=== PATIENT | female | born 1995 | race Caucasian/White ===

== ENCOUNTER → 2017-10-05 16:00 | Outpatient (CLI) | payer OTHER, SELFPAY ==
[2017-10-05 18:03] LABS: hCG Titer Quant., Serum 175 mIU/mL (<9 non-preg)
== END ==
PROVIDERS: Visit Provider Obstetrics & Gynecology
DX: Z32.01 Encounter for pregnancy test, result positive (principal)
CPT/HCPCS: 36415; 84702

== ENCOUNTER → 2017-10-07 16:26 | Outpatient (CLI) | payer OTHER, SELFPAY ==
[2017-10-07 17:56] LABS: hCG Titer Quant., Serum 412 mIU/mL (<9 non-preg)
== END ==
PROVIDERS: Visit Provider Obstetrics & Gynecology
DX: Z32.01 Encounter for pregnancy test, result positive (principal)
CPT/HCPCS: 36415; 84702

== ENCOUNTER → 2017-11-17 09:53 | Outpatient (CLI) | payer OTHER, SELFPAY ==
[2017-11-17 11:21] LABS: Color, Urine Yellow (Yellow); Glucose, Dipstick Normal (Normal); Ketone-Dipstick Negative (Negative); Leukocyte Esterase-Dipstick 500 /ul (Negative); Nitrite-Dipstick Negative (Negative); Occult Blood-Urine 10 /ul (Negative); Protein-Dipstick Negative (Negative); Specific Gravity, Urine 1.015 (1.002-1.030); Urine Bilirubin Dipstick Negative (Negative); Urine Clarity Clear (Clear); Urine Urobilinogen Normal (Normal)
[2017-11-17 12:45] LABS: Absolute Lymphocyte Count 1.46 X10^3/ul (0.83-4.51); Absolute Neutrophil Count 7.3 X10^3/uL (2.0-7.7); Basophil# 0.01 X10^3/uL; Basophil% 0.1 % (0-1); Eosinophil# 0.04 X10^3/uL; Eosinophils% 0.4 % (0-5); Hematocrit 38.7 % (37-47); Hemoglobin 12.9 g/dl (12.0-15.0); Lymphocyte # 1.46 X10^3/ul (4.0); Lymphocyte % 15.7 % (19-41); Mean Corp Hgb Conc 33.3 g/gl (32-36); Mean Corpuscular Hgb 29.8 pg (27.0-32.0); Mean Corpuscular Volume 89.4 fL (81-99); Mean Platelet Vol. 10.2 fl (6.2-12.0); Monocyte# 0.45 X10^3/uL; Monocyte% 4.8 % (0-10); Neutrophil # 7.31 X10^3/uL (2.7-7.7); Neutrophil % 78.6 % (47-70); Platelet Count 234 K/mm3 (150-450); RBC Distribution Width CV 13.8 % (11.6-14.6); RBC Distribution Width SD 44.7 fl (35.1-43.9); Red Blood Count 4.33 M/mm3 (4.2-5.4); White Blood Count 9.3 K/mm3 (4.4-11.0)
[2017-11-17 12:52] LABS: Thyroid Stim Hormone (TSH) 0.66 uIU/mL (0.358-3.74)
[2017-11-17 12:56] LABS: POSITIVE COUNT NO; POSITIVE DIFFERENTIAL NO; POSITIVE MORPHOLOGY NO
[2017-11-17 12:57] LABS: Chlamydia Trachomatis by PCR Negative (Negative); Neisserai gonorrhoeae by PCR Negative (Negative); Probe Check PASS; Specimen Processing Control PASS
[2017-11-17 12:58] LABS: Sample Adequacy Control PASS
[2017-11-17 13:37] LABS: HIV - WCH Non-Reactive (Nonreactive); Rubella IgG 118.4 IU/mL
[2017-11-18 13:55] LABS: HEPATITIS B SURFACE AG Negative (Negative); Hep C Antibodies <0.1 s/co ratio (0.0-0.9)
[2017-11-19 03:15] LABS: Prenatal RPR NONREACTIVE (NONREACTIVE)
== END ==
PROVIDERS: Visit Provider Obstetrics & Gynecology
DX: Z34.81 Encounter for supervision of other normal pregnancy, first trimester (principal)
CPT/HCPCS: 36415; 81002; 84443; 85025; 86703; 86762; 86803; 87340; 87491; 87591

== ENCOUNTER → 2018-03-28 09:10 | Outpatient (CLI) | payer OTHER, SELFPAY ==
[2018-03-28 10:42] LABS: Hematocrit 37.6 % (37-47); Mean Corp Hgb Conc 31.9 g/gl (32-36); Mean Corpuscular Hgb 30.5 pg (27.0-32.0); Mean Corpuscular Volume 95.4 fL (81-99); Mean Platelet Vol. 9.7 fl (6.2-12.0); Platelet Count 173 K/mm3 (150-450); RBC Distribution Width CV 12.8 % (11.6-14.6); RBC Distribution Width SD 44.3 fl (35.1-43.9); Red Blood Count 3.94 M/mm3 (4.2-5.4); White Blood Count 11.1 K/mm3 (4.4-11.0)
[2018-03-28 10:43] LABS: Scan Indicated on CBC? Y/N NO
[2018-03-28 10:44] LABS: Glucose Challenge Gest 1H 50g 91 mg/dL (70-140)
== END ==
PROVIDERS: Visit Provider Obstetrics & Gynecology
DX: Z34.83 Encounter for supervision of other normal pregnancy, third trimester (principal)
CPT/HCPCS: 36415; 82950; 85027

== ENCOUNTER → 2018-05-24 17:43 | Outpatient (CLI) | payer OTHER, SELFPAY ==
[2018-05-24 20:57] LABS: Group B Strep DNA By PCR POSITIVE (Negative); Probe Check PASS
== END ==
PROVIDERS: Referring Provider Obstetrics & Gynecology; Visit Provider Obstetrics & Gynecology
DX: Z36.85 Encounter for antenatal screening for Streptococcus B (principal)
CPT/HCPCS: 87653

== ENCOUNTER 2018-06-05 20:10 | Inpatient (IN) | payer OTHER, SELFPAY ==
[2018-06-05 17:58] VITALS: BMI 29.4
[2018-06-05] MEDS: Lactated Ringers 1,000 ML 50 ML IV ×2 (20:33→23:40)
[2018-06-05 20:56] LABS: Hematocrit 42.8 % (37-47); Hemoglobin 14.1 g/dl (12.0-15.0); Mean Corp Hgb Conc 32.9 g/gl (32-36); Mean Corpuscular Hgb 30.6 pg (27.0-32.0); Mean Corpuscular Volume 92.8 fL (81-99); Platelet Count 199 K/mm3 (150-450); RBC Distribution Width CV 13.8 % (11.6-14.6); RBC Distribution Width SD 46.2 fl (35.1-43.9); Red Blood Count 4.61 M/mm3 (4.2-5.4)
[2018-06-05 20:57] LABS: Scan Indicated on CBC? Y/N NO
[2018-06-06] MEDS: fentaNYL-bupivacaine (epidural) 100 ML BAG EPIDURAL ×4 (00:50→17:53)
[2018-06-06] MEDS: Lactated Ringers 1,000 ML 50 ML IV ×3 (02:50→14:04)
--- NOTE | 2018-06-06 06:25 | PCM.PN.BLA ---
Progress Note LABOR PROGRESS NOTE 38 5/7 wk spon labor. Epidural in place. ? SROM CX /-1 per last RN check approx 3:30 am AVSS EFM 130-150s baseline throughout the night. Accels to 180+ with occasional variable. UCs now q 3-4 min A/P: term IUP spont labor 38 5/7 wks. Epidural placed, and SROM . Continue labor. Anticipate
--- NOTE | 2018-06-06 07:55 | PCM.PN.BLA ---
Progress Note LABOR PROGRESS NOTE 38 5/7 wk spont labor Comfortable w/ epidural. Able to rest a little AVSS EFM 140-150s with accels. Category I tracing. UCs q 3-4 mins CX: 5-6/90/-2 BBOW with UC Borderline pelvis with narrow arch. AROM bloody show. IUPC placed to monitor UCs A/P: 38 5/7 wk Spont labor. IUPC placed. Pitocin per protol prn
[2018-06-06] MEDS: Oxytocin 30 units/NS 500 ml 30 UNITS/500 ML IV.SOLN IV (08:22)
--- NOTE | 2018-06-06 17:14 | PCM.PN.BLA ---
Progress Note 38 5/7 wk spont labor Pitocin augmented. Epidural in place AVSS Complete since approx 1500. -1 station. Likely OP. Borderline pelvis with narrow arch. EFM: 140-150 avg variability. Accels Scalp stim noted. Variables noted Category I tracing. UCs q 2-3 mins A/P: 38 5/7 wk complete and pushing. Continue position changes, pushing Watch for further progress, descent.
[2018-06-06] MEDS: Oxytocin 30 units/NS 500 ml 30 UNITS/500 ML IV.SOLN 334 UNITS IV (20:33)
--- NOTE | 2018-06-06 20:46 | OP.PCM_ITS ---
Vaginal Delivery Maternal Presentation: Active Labor, Spontaneous Rupture of Membranes Amniotic Membrane Rupture Type: Spontaneous Amniotic Fluid Description: Clear Final KARRI: 06/15/18 Final KARRI Source: US <20 weeks Gestational age: 38 Weeks and 5 Days [place] doctor who attended delivery (if requested by OB): Ana Barrera - tachycardia Date of Procedure: 06/06/18 Pre-Operative Diagnosis: IUP Post-Operative Diagnosis: IUP Surgery/ Procedure Performed: Vacuum Assisted Vaginal Delivery Type of Anesthesia: Epidural, Local with 1% lidocaine Description of Procedure: Spontaneous vaginal delivery of a viable female with Apgars of 8/9 from an occiput anterior presentation with clear amniotic fluid and normal three- vessel placenta. First-degree midline episiotomy extended to a third degree midline laceration repaired in layers with 3-0 Vicryl suture under epidural and local anesthesia. From low outlet, kiwi vacuum used x6 gentle pulls with a single pop off due to increasing maternal fatigue after approximately 3.5 hours of pushing and increasing tachycardia. Sponge counts okay. Delivery physician: Thor Goins MD. Presentation: Vertex Placental Delivery Description: Spontaneous Placenta Disposition: [facility] Cord Vessel Description: 3 Vessels Cord Gases drawn per routine: ABG, VBG Cord Entanglement: None Estimated Blood Loss: 250 cc Infant A gender: Female (1 minute): 8 (5 minute): 9 Episiotomy Description: Midline, 1st degree Laceration: Midline, Perineal Extension/lac, 3rd degree Medications given after delivery: IV Pitocin Complications: None
--- NOTE | 2018-06-06 20:52 | PCM.DCVAG ---
Discharge Diet: No Restrictions Discharge Activity: May Shower, May Take a Tub Bath May resume sexual activity in: 4-6 weeks Additional Activity Instructions:: Nothing in the vagina for 4-6 weeks. You may return to work/school in 6 weeks. Call your doctor if you observe: Fever of 101 or Higher, Inability to urinate, Inability to have a bowel movement, Using more than one pad per hour Additional Instructions: If you experience any of the following, contact your healthcare provider. Bleeding that soaks a pad every hour for 2 hours Unrelieved incision or abdominal pain Swelling, redness, discharge or bleeding from your incision or episiotomy site Your incision begins to separate Problems urinating (including inability to urinate or burning while urinating). Visual changes Severe headache Flu-like symptoms Pain or redness in one of both of your breasts Pain, warmth, tenderness or swelling in your legs, especially the calf area Frequent nausea and vomiting Symptoms of depression or anxiety If you experience any of the following, call 911 or go to the nearest Emergency Room. Chest pain Problems breathing Seizure activity Partial or complete paralysis of a body part, slurred speech, weakness or drooping of the face, or a sudden inability to walk or hold your balance Allergies/Adverse Reactions: Allergies No Known Allergies Allergy (Verified 06/05/18 18:01) Medications to take at Discharge Vits [Prenatabs FA] 1 tablet PO DAILY 05/03/17 Please Follow Up With: Micki Alvarado MD - [phone] When: Call to make an appointment with your doctor in 6 weeks. Primary Care Physician: Care Physician,No Primary [Primary Care Provider] - Test Results: Test results from this visit will be discussed in further detail at your follow-up appointment, if applicable.
--- NOTE | 2018-06-06 20:53 | DCINST_ITS ---
Discharge Diet: No Restrictions Discharge Activity: May Shower, May Take a Tub Bath May resume sexual activity in: 4-6 weeks Additional Activity Instructions:: Nothing in the vagina for 4-6 weeks. You may return to work/school in 6 weeks. Call your doctor if you observe: Fever of 101 or Higher, Inability to urinate, Inability to have a bowel movement, Using more than one pad per hour Additional Instructions: If you experience any of the following, contact your healthcare provider. * Bleeding that soaks a pad every hour for 2 hours * Unrelieved incision or abdominal pain * Swelling, redness, discharge or bleeding from your incision or episiotomy site * Your incision begins to separate * Problems urinating (including inability to urinate or burning while urinating). * Visual changes * Severe headache * Flu-like symptoms * Pain or redness in one of both of your breasts * Pain, warmth, tenderness or swelling in your legs, especially the calf area * Frequent nausea and vomiting * Symptoms of depression or anxiety If you experience any of the following, call 911 or go to the nearest Emergency Room. * Chest pain * Problems breathing * Seizure activity * Partial or complete paralysis of a body part, slurred speech, weakness or drooping of the face, or a sudden inability to walk or hold your balance Allergies/Adverse Reactions: Allergies No Known Allergies Allergy (Verified 06/05/18 18:01) Medications to take at Discharge Vits [Prenatabs FA] 1 tablet PO DAILY 05/03/17 Please Follow Up With: Micki Alvarado MD - [phone] When: Call to make an appointment with your doctor in 6 weeks. Primary Care Physician: Care Physician,No Primary [Primary Care Provider] - Test Results: Test results from this visit will be discussed in further detail at your follow- up appointment, if applicable.
[2018-06-06] MEDS: Oxytocin 30 units/NS 500 ml 30 UNITS/500 ML IV.SOLN 167 UNITS IV (21:03)
[2018-06-06] MEDS: 0.9% Saline Lock 10 ML Syringe IV (22:03)
[2018-06-06] MEDS: Ibuprofen 600 MG Tablet PO (22:31)
[2018-06-06 23:45] VITALS: BP 95/55; PULSE 114; RESP 16; TEMP 36.2; O2SAT 98
[2018-06-07 01:22] VITALS: PULSE 95; RESP 16
--- NOTE | 2018-06-07 01:27 | NURSING ---
0115 epidural cath d/c'd with blue tip intact. pt tolerated well
[2018-06-07 04:16] VITALS: BP 92/52; PULSE 79; RESP 16; TEMP 36.5; O2SAT 98
[2018-06-07] MEDS: Ibuprofen 600 MG Tablet PO ×2 (06:51→18:03)
[2018-06-07 08:00] VITALS: BP 102/57; PULSE 89; RESP 16; TEMP 37.2; O2SAT 96
--- NOTE | 2018-06-07 08:21 | PCM.PN.OB ---
Subjective: PPD#1 Vacuum assisted vaginal delivery Doing well. Nursing. Minimal pain. No concerns voiced. - Physical Exam General: Alert, Oriented x3, Cooperative, No apparent distress HEENT: Atraumatic Neck: Supple Abdomen: Soft - Fundus firm NT at 2-3 cm inferior to umbilicus Neurological: Cranial nerves II-XII grossly intact Psych/Mental Status: Normal Affect Vital Signs Temp Pulse Resp BP Pulse Ox 99 F 89 16 102/57 L 96 06/07/18 08:00 06/07/18 08:00 06/07/18 08:00 06/07/18 08:00 06/07/18 08:00 Oxygen Delivery Method Room Air Weight: 73.028 kg Body Mass Index (BMI) 29.4 Intake and Output for Last 24 Hours 06/05/18 06/06/18 06/07/18 23:59 23:59 23:59 Intake Total 5746 / 5746 Output Total 2049 1350 / 1350 Balance 3696 / 3696 -1350 / -1350 Medical Necessity - Tobacco Use Smoking Status: Never smoker Assessment/Plan PPD#1 Vacuum assisted vaginal delivery Stable pp. Continue care
[2018-06-07 13:42] VITALS: BP 118/78; PULSE 102; RESP 16; TEMP 36.3; O2SAT 98
[2018-06-07] MEDS: Senna/Docusate Sodium 1 Tablet PO (13:49)
[2018-06-07] MEDS: Acetaminophen 500 MG Tablet 1000 MG PO (13:50)
[2018-06-07 18:00] VITALS: BP 100/66; PULSE 90; RESP 16; TEMP 37.1; O2SAT 100
[2018-06-07 19:50] VITALS: BP 107/65; PULSE 85; RESP 16; TEMP 36.7; O2SAT 97
[2018-06-08 02:00] VITALS: BP 95/56; PULSE 78; RESP 18; TEMP 36.6
--- NOTE | 2018-06-08 07:58 | PCM.PN.OB ---
Subjective: PPD#2 Doing well. Minimal pain. Breast feeding. - Physical Exam General: Alert, Oriented x3, Cooperative, No apparent distress HEENT: Atraumatic Neck: Supple Abdomen: Soft - Fundus firm NT at umbilicus Neurological: Cranial nerves II-XII grossly intact Psych/Mental Status: Normal Affect Vital Signs Temp Pulse Resp BP Pulse Ox 97.8 F 78 18 95/56 L 97 06/08/18 02:00 06/08/18 02:00 06/08/18 02:00 06/08/18 02:00 06/07/18 19:50 Oxygen Delivery Method Room Air Weight: 73.028 kg Body Mass Index (BMI) 29.4 Intake and Output for Last 24 Hours 06/06/18 06/07/18 06/08/18 23:59 23:59 23:59 Intake Total 5746 / 5746 Output Total 2049 / 2049 1350 / 1350 Balance 3696 / 3696 -1350 / -1350 Medical Necessity - Tobacco Use Smoking Status: Never smoker Assessment/Plan PPD#2 Vacuum assisted vaginal delivery Stable pp. Dischg home. RTO in 6 wk for PP check.
[2018-06-08] MEDS: Senna/Docusate Sodium 1 Tablet PO (09:31)
[2018-06-08 10:00] VITALS: BP 123/77; PULSE 103; RESP 18; TEMP 36.6; O2SAT 100
== END 2018-06-08 11:40 | disposition home or self-care (01) | DRG 768 ==
LOC: WPOUT 20:13
PROVIDERS: Obstetrics & Gynecology; Admitting Provider Obstetrics & Gynecology; Visit Provider Obstetrics & Gynecology
DX: O98.82 Other maternal infectious and parasitic diseases complicating childbirth (principal); Z37.0 Single live birth; O70.20 Third degree perineal laceration during delivery, unspecified; B95.1 Streptococcus, group B, as the cause of diseases classified elsewhere; Z3A.38 38 weeks gestation of pregnancy
CPT/HCPCS: 59025; 59050; 85027; 86850; 86900; 99218; J7120; A4216; G0378; J3490

== ENCOUNTER 2018-06-09 13:38 | Outpatient (CLI) | payer OTHER, SELFPAY | END 2018-06-09 14:40 | disposition home or self-care (01) | LOC: WPOUT 13:40 → WP 13:40 | PROVIDERS: Referring Provider Obstetrics & Gynecology; Visit Provider Obstetrics & Gynecology | DX: O92.79 Other disorders of lactation (principal) | CPT/HCPCS: 96152 ==

== ENCOUNTER 2018-06-13 10:10 | Outpatient (CLI) | payer OTHER, SELFPAY | END 2018-06-13 10:50 | disposition home or self-care (01) | LOC: WPOUT 10:17 → WP 10:17 | PROVIDERS: Referring Provider Obstetrics & Gynecology; Visit Provider Obstetrics & Gynecology | DX: Z39.1 Encounter for care and examination of lactating mother (principal) | CPT/HCPCS: 96152 ==

== ENCOUNTER → 2018-07-13 12:33 | Outpatient (CLI) | payer OTHER, SELFPAY ==
[2018-07-18 15:59] LABS: HPV Reflexed? NOT INDICATED
== END ==
PROVIDERS: Referring Provider Obstetrics & Gynecology; Visit Provider Obstetrics & Gynecology
DX: Z12.4 Encounter for screening for malignant neoplasm of cervix (principal)
CPT/HCPCS: 88175; G0145

== ENCOUNTER → 2019-07-28 16:22 | Outpatient (CLI) | payer OTHER, SELFPAY ==
[2019-07-28 19:36] LABS: Chlamydia Trachomatis by PCR Negative (Negative); Neisserai gonorrhoeae by PCR Negative (Negative); Probe Check PASS; Sample Adequacy Control PASS; Specimen Processing Control PASS
== END ==
PROVIDERS: Visit Provider Obstetrics & Gynecology
DX: Z11.3 Encounter for screening for infections with a predominantly sexual mode of transmission (principal)
CPT/HCPCS: 87491; 87591

== ENCOUNTER → 2019-08-14 09:34 | Outpatient (CLI) | payer OTHER, SELFPAY ==
[2019-08-14 10:58] LABS: Absolute Lymphocyte Count 1.39 X10^3/uL (0.83-4.51); Basophil# 0.02 X10^3/uL; Basophil% 0.3 % (0-1); Color, Urine Yellow (Yellow); Eosinophil# 0.02 X10^3/uL; Eosinophils% 0.3 % (0-5); Glucose, Dipstick Normal (Normal); Hematocrit 41.3 % (37-47); Hemoglobin 13.9 g/dL (12.0-15.0); Ketone-Dipstick Negative (Negative); Leukocyte Esterase-Dipstick 25 /ul (Negative); Lymphocyte # 1.39 X10^3/ul (4.0); Lymphocyte % 17.8 % (19-41); Mean Corp Hgb Conc 33.7 g/dL (32-36); Mean Corpuscular Hgb 30.6 pg (27.0-32.0); Mean Platelet Vol. 9.9 fl (6.2-12.0); Monocyte% 3.9 % (0-10); NRBC Flagged by Analyzer 0 % (0-5); Neutrophil # 6.02 X10^3/uL (2.7-7.7); Neutrophil % 77.2 % (47-70); Nitrite-Dipstick Negative (Negative); Occult Blood-Urine Negative /ul (Negative); Platelet Count 194 K/mm3 (150-450); Protein-Dipstick Negative (Negative); RBC Distribution Width CV 12.3 % (11.6-14.6); RBC Distribution Width SD 40.2 fl (35.1-43.9); Red Blood Count 4.54 M/mm3 (4.2-5.4); Urine Bilirubin Dipstick Negative (Negative); Urine Clarity Sl. Cloudy (Clear); Urine Urobilinogen Normal (Normal); White Blood Count 7.8 K/mm3 (4.4-11.0)
[2019-08-14 11:09] LABS: Amphetamine Urine VISTA NEGATIVE (<1000 ng/mL); Barbiturate Urine VISTA NEGATIVE (< 200 ng/mL); Benzodiazepine Urine VISTA NEGATIVE (< 200 ng/mL); Cocaine Urine VISTA NEGATIVE (< 300 ng/mL); Ecstacy Urine VISTA NEGATIVE (< 500 ng/mL); Methadone Urine VISTA NEGATIVE (< 300 ng/mL); PCP Urine VISTA NEGATIVE (< 25 ng/mL); THC Urine VISTA NEGATIVE (< 50 ng/mL); Vista UDS pH Range 7
[2019-08-14 11:17] LABS: Thyroid Stim Hormone (TSH) 0.81 uIU/mL (0.358-3.74)
[2019-08-14 11:59] LABS: HIV - WCH Non-Reactive (Nonreactive); Hepatitis B Surface Antigen Non-Reactive (Nonreactive); Hepatitis C Antibody Non-Reactive (Nonreactive); Rubella IgG 141.7 IU/mL
[2019-08-17 00:56] LABS: Prenatal RPR NONREACTIVE (NONREACTIVE)
== END ==
PROVIDERS: Visit Provider Obstetrics & Gynecology
DX: Z34.81 Encounter for supervision of other normal pregnancy, first trimester (principal)
CPT/HCPCS: 36415; 80307; 81002; 84443; 85025; 86703; 86762; 86803; 87340

== ENCOUNTER → 2020-02-08 11:34 | Outpatient (CLI) | payer OTHER, SELFPAY | PROVIDERS: Visit Provider Obstetrics & Gynecology | DX: Z36.85 Encounter for antenatal screening for Streptococcus B (principal) | CPT/HCPCS: 87081; 87086 ==

== ENCOUNTER → 2020-02-12 10:11 | Outpatient (CLI) | payer OTHER, SELFPAY | PROVIDERS: Referring Provider Obstetrics & Gynecology; Visit Provider Obstetrics & Gynecology | DX: Z11.59 Encounter for screening for other viral diseases (principal) | CPT/HCPCS: 87635; G2023; U0003 ==

== ENCOUNTER 2020-02-28 05:06 | Inpatient (IN) | payer OTHER, SELFPAY ==
[2020-02-28] VITALS (34 sets, daily range): BP systolic 96–140; BP diastolic 51–84; PULSE 78–124; RESP 15–18; TEMP 36.1–36.9; O2SAT 83–100; BMI 28.0
[2020-02-28] MEDS: Lactated Ringers 1,000 ML 999 ML IV (05:30)
[2020-02-28 05:56] LABS: Absolute Lymphocyte Count 1.84 X10^3/uL (0.83-4.51); Basophil# 0.05 X10^3/uL; Basophil% 0.3 % (0-1); Eosinophil# 0.05 X10^3/uL; Eosinophils% 0.3 % (0-5); Hematocrit 40.5 % (37-47); Hemoglobin 13.3 g/dL (12.0-15.0); Lymphocyte # 1.84 X10^3/ul (4.0); Lymphocyte % 12.3 % (19-41); Mean Corp Hgb Conc 32.8 g/dL (32-36); Mean Corpuscular Volume 94.4 fL (81-99); Mean Platelet Vol. 10.2 fl (6.2-12.0); Monocyte# 0.77 X10^3/uL; Monocyte% 5.1 % (0-10); NRBC Flagged by Analyzer 0 % (0-5); Neutrophil # 11.96 X10^3/uL (2.7-7.7); Neutrophil % 79.7 % (47-70); Platelet Count 188 K/mm3 (150-450); RBC Distribution Width CV 12.8 % (11.6-14.6); RBC Distribution Width SD 43.4 fl (35.1-43.9); Red Blood Count 4.29 M/mm3 (4.2-5.4)
[2020-02-28] MEDS: Oxytocin 10 UNITS/ML Vial IM (06:39)
--- NOTE | 2020-02-28 06:52 | HP.PCM_ITS ---
History and Physical Date of Admission: 02/28/20 ACOG ANTEPARTUM RECORD - HISTORY AND PHYSICAL (02/28/2020) Name: IZA GOMEZ History of This : This is a 25-year-old G4, P1 AB 2 who presents to labor and delivery in advanced labor. care has been uneventful. OB Physician: GERRY Pendleton's Physician: Dr Cannon ...................................................................... : 1995 Age: 25 Address: [address] [place] [address] Phone: (h) [phone] ([phone] Insurance Carrier: [facility] [id number] Emergency Contact: TONIA MATHIASR [phone] ...................................................................... Final KARRI: 02/20/20 By Ultrasound: 10 weeks 3 days PARITY: (G-Total Pregnancies P-Fullterm,Premature,Induced AB,Spont AB, Ectopics, Multiple,Living) KARRI CONFIRMATION: By LMP: 05/04/19 Initial Exam: 02/08/20 By First Ultrasound Exam: 02/20/20 Final KARRI: 02/20/20 OB PROBLEM LIST: Declines AFP and CF testing. Mild anxiety but only when . ALLERGIES: No Known Allergies MEDICATIONS: + DHA 28 mg iron- 975 mcg-200 mg combo pack daily SOCIAL HISTORY: Smoking - Never Alcohol Use - denies drinking Diet - moderate, balanced diet, caffeine < 2 drinks per day and water intake tries for 1 liter daily Lifestyle - Exercise - minimal and Enc to walk 20 min daily. Employer - [employer] Job Description - adjudication specialist Illicit Drug Use - None Sexual Activity - Residence - lives with Place of - [place], [place] Hours Worked - 50 Spouse-Sig Other Name - Tonia Spouse-Sig Other Occupation - [employer] -Grinding And Polishing Laborer Spouse-Sig Other Phone No - [phone] Children Name(s) - Leora ('18, JW) PRIOR DELIVERY HISTORY DEL DATE GEST LAB WT LB WT OZ TYPE ANES LABOR TX 15 Aug 08 4 0 0 0 Sab None No 15 Jun 09 38 36 7 10 Vag Epidural No 15 Apr 17 7 0 0 0 Sab None No ANTEPARTUM FLOW CHART VISIT GE RTC FU F F UT U U DATE WK MD WKS HT PN HR M SS BP ED WT UT GL D EF ST __ ____ ___ __ __ ___ __ __ __ ___ __ __ __ ___ __ 07 Juventino 41 CH 2 40 V + + 110/82 0 154 tr - 1+ 25 -2 Jan CH 1 38 V + + 122/80 0 148 tr - ft 30 hi Oct 13 CH 2 on + 92/64 0 121 - - Sep 08 SHM 2 17 ? + ? 108/72 0 115 - - Aug 03 ELB 4 - - + O 98/58 0 112 tr - ANTEPARTUM NOTE(S): Feb 27 2020: feeling well. Cervix check. Feb 08 2020: feeling well. GBS and LARC today. declines doing glucola. Oct 10 2019: see note Sep 12 2019: see note Aug 14 2019: COMPREHENSIVE ANTEPARTUM NOTE(S): Feb 27 2020: IOL papers signed today and understands Cytotec IOL. Has pre- registered for the hospital. Tomorrow 7pm IOL. Membrane sweep today. NST reactive in office. 2 week PP and 6 wk pp to be scheduled. - Feb 13 2020: H taken to OB. tkg Feb 08 2020: Had called in to ask about arriving at for delivery. Was advised to come into office since hasn't been seen since Covid began. She is ve ry anxious and has not left her home at all. GBS collection today, but refusing 3rd trimester labs. Suggested at least an A1C draw, but refusing. Discussed infant may need to have BS checks as well as her during labor and PP. She said she will sign declination and refuse them as well. She wants minimal to no intervention. Wants SVE today ft/30/high soft midposition. Does not want to return to office at all. She will do 2 and 6 week appts via telehealth unless having complications. She will get Covid testing done today and then self quarantine with her and child until delivery. States will likely want epidural in labor for pain management. Lots of FM and FHR 145. Advised of policies, procedures and protocols. To arrive if in labor or call transmission supervisor number. - Oct 10 2019: Iza is here for her appt. She is feeling good, mild nausea occasionally. She is having a boy and baby boy is moving good. No edema and no complaints at this time. Urine - -. MK Oct 10 2019: (f,m*) Had anatomy US today which reveals male fetus AGA with all anatomy visualized and WNL. FHR on US 157. Was very anxious and nervous for US, but feeling better now. Reports +FM. Discussed anterior placenta and possible of decreased movements being felt. Reviewed practice providers and shared vaginal deliveries with M. Daughter had to be vacuumed and understands that Dr. Goins is [facility] collaborating physician and would come in for repeat vacuum. She states she is very comfortable with this plan and is okay to see anyone. Will return in 4 weeks for routine PNV. - Sep 12 2019: Iza here for a appt. She is feeling good with a little bit of nausea. Thinks she might be feeling baby move, but it might be gas as well. No edema. Urine - -. MK Sep 12 2019: Declines aneuploidy screening. Discussed FM. Anatomy scan next visit. Thinks it is MALE fetus based on last US. Aug 14 2019: Doing much better at this stage of than w/first. Just more tired. kb Aug 14 2019: Jim is here for NOB nurse visit with KARRI February 20, 2020 planning a vag del at [facility] w epidural, using Dr Noa Cannon for post disch ped care and to breastfeed. Jim is a G 4 P 1 with 15 mon old daughter, Leora, at home. 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 Her , Tonia works at [employer] as an Grinding And Polishing Laborer. They are happy about the pg. Iza has NKA to drugs, food, latex or the environment. She is a lifetime non smoker, non drinker and denies street drug use. Her diet is balanced although chicken is their main meat. She does eat eggs, nuts and other sources of protein. Importance of protein discussed. She drinks zero caffeine and only about one liter of water daily. ENc to try to double that as she can or more. She is active at school but does minimal exercise. Enc to take walks 20 min daily unless inclement weather. Genetics Screening form completed noting only some [place] background. She declines AFP and CF tests. Warning signs in pg reviewed as well as lifting restriction of 25#, OTC meds ok to take, reaching the office when closed and wearing her seatbelt low under her abdomen w understanding voiced. She has a copy of What to Expect. States doesn't really read it much as it makes her nervous. She has mild anxiety but only when Im . US was done on a previous visit. Routine labs drawn today. They have cats but she does not change the litter. Enc to call with any concerns. Visit took 35 min. Syeda MENA NEW Aug 14 2019: Doing well. Reviewed CNM care vs MD care. RTO in 4 wk for PNV. NOB labs today. Advised of neg GC and chlamydia cultures EB O positive RI. Hgb 13.9 g/dl. EB Jul 28 2019: Iza is being seen for missed menses. G 4 P 1. UPT in office is positive. LMP 9-12-19. Pt is about 12 weeks and 1 day. KARRI 20. Pt states period lasted about 12 days this time. Pt does have some nausea. Last pap 2018 WNL, culture due today. Medications and allergies are up to date. information gone over and given. AM Jul 28 2019: NEW PERGNANCY: GC and chlamydia cultures NEG. EB REVIEW OF SYSTEMS: GENERAL - Denies fever, or chills SKIN - Denies rash, new skin lesions, or change in moles EYES - Denies blurred vision, or change in visual acuity EARS - Denies ear pain, or difficulty hearing NOSE - Denies nasal congestion, discharge, or bleeding MOUTH - Denies sore throat, or difficulty swallowing NECK - Denies pain or swelling RESPIRATORY - Denies shortness of breath, cough, wheezing CARDIOVASCULAR - Denies palpitations, chest pain, orthopnea, PND, peripheral edema, syncope or claudication GASTROINTESTINAL - Denies nausea, vomiting, diarrhea, constipation, Denies abdominal pain, melena and or bright red blood GENITOURINARY - Denies dysuria, frequency of urination, urgency, or hesitancy MUSCULOSKELETAL - Denies joint or muscle pain, or back pain NEUROLOGICAL - Denies localized numbness, weakness, or tingling PSYCHIATRIC - Denies depression, anxiety, substance abuse or suicide attempts ENDOCRINE - Denies heat or cold intolerance, weight loss or gain, increasing thirst HEMATO-IMMUNOLOGIC - Denies easy bruising, bleeding, oral ulcerations or recurrent infections GENETICS SCREENING: Age 35+ years: No Thalassemia: No Neural Tube Defect: No Down Syndrome: No REBA-SACHS: No Sickle Cell Disease: No Hemophilia: No Musc. Dystrophy: No Cystic Fibrosis: No-declines screening Gen Chorea: No Mental Retardation: No Fragile X: No Other genetic: No Other defects: No SABs/still births: No Drugs since LMP: No INFECTION HISTORY: High risk AIDS: No High risk Hepatitis: No Exposed to TB: No Exposed to Herpes: No Rash/viral illness since LMP: No History of STD: No MENSTRUAL HISTORY: *Menses Amount/Duration: 7-10 daysMenarche (Age Onset): 10* PAST SUMMARY: PARITY: 1. Total Pregnancies............ 4 2. Full Term Pregnancies........ 1 3. Premature.................... 0 4. Abortions - Induced.......... 0 5. Abortions - Spontaneous...... 2 6. Ectopics..................... 0 7. Multiple Births.............. 0 8. Living Children.............. 1 PAST #1: Date of :.................. 05/07/17 Gestation Weeks:................ 7 Length of labor(hours):......... 0 Sex:............................ Weight-lbs:............... 0 Weight-oz:................ 0 Type of Delivery:............... Sab Type of Anesthesia:............. None Place of Delivery:.............. none Treatment of Labor?:.... No Comment: DATE APPROX PAST #2: Date of :.................. 08/06/17 Gestation Weeks:................ 4 Length of labor(hours):......... 0 Sex:............................ Weight-lbs:............... 0 Weight-oz:................ 0 Type of Delivery:............... Sab Type of Anesthesia:............. None Place of Delivery:.............. none Treatment of Labor?:.... No Comment: CHEM PREG, DATE APPROX PAST #3: Date of :.................. 06/06/18 Gestation Weeks:................ 38 Length of labor(hours):......... 36 Sex:............................ F Weight-lbs:............... 7 Weight-oz:................ 10 Type of Delivery:............... Vag Type of Anesthesia:............. Epidural Place of Delivery:.............. [place] Treatment of Labor?:.... No Comment: VAC DEL PHYSICAL EXAMINATION General Appearence: 25 yo female in no acute distress Vital Signs: AF, VSS Heart: RRR without rubs or gallops Lungs: CTA x 2 Breasts: deferred Abdomen: gravid Pelvis: Cervix: Complete with rupture of membranes Presentation: cephalic Station: 0 Fetus: Size: AGA Movement: present Heart: present Labs for : IZA GOMEZ since 05/26/2019 ORDER DATEIN DESCRIPTION VALUE UNITS RANGE A+ COMMENT CBC W/DIFF, AUTOMATED 02/28/20 NOTE Original Ordering Provider: NORBERTO Hua WBC 15.0 K/mm3 4.4-11.0 H RBC 4.29 M/mm3 4.2-5.4 HGB 13.3 g/dL 12.0-15.0 HCT 40.5 % 37-47 MCV 94.4 fL 81-99 MCH 31.0 pg 27.0-32.0 MCHC 32.8 g/dL 32-36 RDW CV 12.8 % 11.6-14.6 RDW SD 43.4 fl 35.1-43.9 PLT 188 K/mm3 150-450 MPV 10.2 fl 6.2-12.0 NEUT% 79.7 % 47-70 H LY% 12.3 % 19-41 L MONO% 5.1 % 0-10 EO% 0.3 % 0-5 BASO% 0.3 % 0-1 IM GRAN % 2.300 % 0.0-0.9 Hr IG% - Immature Granulocytes (promyelocytes, myelocytes and metamyelocytes) > 1% indicates that a LEFT SHIFT is Present. ABSOLUTE NEUT 12.0 X10 3/uL 2.0-7.7 H ABSOLUTE LYMPH 1.84 X10 3/uL 0.83-4.51 NRBC, FLAGGED 0 % 0-5 CORONAVIRUS 19, VALE 02/12/20 NOTE Original Ordering Provider: NORBERTO Hua COVID-19,VALE Not Detected Not Detected This test was developed and its performance characteristics determined by [employer]. This test has not been FDA cleared or approved. This test has been authorized by FDA under an Emergency Use Authorization (EUA). This test is only authorized for the duration of time the declaration that circumstances exist justifying the authorization of the emergency use of in vitro diagnostic tests for detection of SARS-CoV-2 virus and/or diagnosis of COVID-19 infection under section 564(b)(1) of the Act, 21 U.S.C. 360bbb-3(b)(1), unless the authorization is terminated or revoked sooner. When diagnostic testing is negative, the possibility of a false negative result should be considered in the context of a patient's recent exposures and the presence of clinical signs and symptoms consistent with COVID-19. An individual without symptoms of COVID-19 and who is not shedding SARS-CoV-2 virus would expect to have a negative (not detected) result in this assay. Performed at: [facility] [email or web address] [facility] [place] [id number] Vocational Rehabilitation Specialist: Zulema Doshi MD, Phone: [phone] Reviewed by GERRY baltazar CULTURE, GROUP B STREPTOCOCCUS 02/08/20 NOTE Original Ordering Provider: NORBERTO Hua IRMA Culture Group B Beta Streptococcus is not isolated. Reviewed by GERRY RPR 08/14/19 NOTE Original Ordering Provider: Micki Alvarado RPR NONREACTIVE NONREACTIVE w Reviewed by MICKI ARSHAD T AND S-NO CHARGE W/PNP 08/14/19 Reason for Type AND Screen/Red Cells: Surgery? [facility]~[address] [place], [address]~ BLOOD TYPE GEL O POSITIVE N AB SCREEN GEL NEGATIVE N Reviewed by MICKI HEPATITIS C ANTIBODY 08/14/19 NOTE Original Ordering Provider: Micki Alvarado HEPATITIS C AB Non-Reactive Nonreactive Non Reactive: < 0.8 Equivocal: >/= 0.8 to < 1.0 Reactive: >/= 1.0 The CDC recommends that a reactive/equivocal HCV antibody result be followed up by the HCV Nucleic Acid Amplification test ([id number]) Reviewed by MICKI HEPATITIS B SURFACE ANTIGENw 08/14/19 NOTE Original Ordering Provider: Micki Alvarado HEPB SURFACE AG Non-Reactive Nonreactive Reviewed by MICKI HIV - [facility] 08/14/19 NOTE Original Ordering Provider: Micki Alvarado HIV - [facility] Non-Reactive Nonreactive Reviewed by MICKI RUBELLA IGG 08/14/19 NOTE Original Ordering Provider: Micki Alvarado RUBELLA IGG 141.7 IU/mL Antibody results Interpretation of Immune Status < 5 IU/ml Presumed Non-immune 5 - < 10 IU/ml Equivocal > or = 10 IU/ml Presumed Immune Reviewed by MICKI THYROID STIM HORMONE (TSH) 08/14/19 NOTE Original Ordering Provider: Micki Alvarado TSH 0.81 uIU/mL 0.358-3.74 Reviewed by MICKI URINE DRUG SCREEN (VISTA) 08/14/19 NOTE Original Ordering Provider: Micki Alvarado TO BE CONFIRMED CONFIRMATORY TESTING FOR ALL POSITIVE URINE DRUG SCREEN RESULTS WILL ONLY BE SENT OUT UPON PHYSICIAN ORDER. VISTA Urine Drug Screen methods provide only preliminary analytical test results. A more specific alternate chemical method must be used in order to obtain a confirmed analytical result. Gas chromatography/mass spectrometery (GC/MS) is the preferred confirmatory method. Clinical consideration and professional judgement should be applied to any drug of abuse test result, particularly when preliminary positive results are used. URINE TCA TESTING MUST BE ORDERED SEPARATELY. USE TEST MNEMONIC: [facility]IST[facility] UDS PH 7 AMPHETAMINES NEGATIVE <1000 ng/mL BARBITIURATES NEGATIVE < 200 ng/mL BENZODIAZIPINE NEGATIVE < 200 ng/mL COCAINE NEGATIVE < 300 ng/mL ECSTACY NEGATIVE < 500 ng/mL METHADONE NEGATIVE < 300 ng/mL OPIATES NEGATIVE < 300 ng/mL PCP NEGATIVE < 25 ng/mL THC NEGATIVE < 50 ng/mL Reviewed by MICKI URINALYSIS, ROUTINE (DIPSTICK) 08/14/19 NOTE Original Ordering Provider: Micki Alvarado COLOR Yellow Yellow CLARITY Sl. Cloudy Clear GLUCOSE, UR Normal mg/dl Normal BILIRUBIN URINE Negative mg/dL Negative KETONE UR Negative mg/dl Negative SP.GR. DIPSTX 1.010 1.002-1.030 PH UR 8.0 5.0 - 8.0 PROT DIPSTX Negative mg/dl Negative UROBILI Normal mg/dl Normal NITRITE UR Negative Negative OCCULT BLOOD-UR Negative /ul Negative LEUK ESTERASE 25 /ul Negative H Reviewed by MICKI CBC W/DIFF, AUTOMATED 08/14/19 NOTE Original Ordering Provider: Micki Alvarado WBC 7.8 K/mm3 4.4-11.0 RBC 4.54 M/mm3 4.2-5.4 HGB 13.9 g/dL 12.0-15.0 w HCT 41.3 % 37-47 MCV 91.0 fL 81-99 MCH 30.6 pg 27.0-32.0 MCHC 33.7 g/dL 32-36 RDW CV 12.3 % 11.6-14.6 RDW SD 40.2 fl 35.1-43.9 PLT 194 K/mm3 150-450 MPV 9.9 fl 6.2-12.0 NEUT% 77.2 % 47-70 H LY% 17.8w % 19-41 L MONO% 3.9 % 0-10 EO% 0.3 % 0-5 BASO% 0.3 % 0-1 IM GRAN % 0.500 % 0.0-0.9 IG% - Immature Granulocytes (promyelocytes, myelocytes and metamyelocytes) > 1% indicates that a LEFT SHIFT is Present. ABSOLUTE NEUT 6.0 X10 3/uL 2.0-7.7 ABSOLUTE LYMPH 1.39 X10 3/uL 0.83-4.51 NRBC, FLAGGED 0 % 0-5 Reviewed by MICKI Reviewed by MICKI CT/NG [facility] BY PCR 07/28/19 NOTE Original Ordering Provider: Micki Alvarado CHLAM TRAC PCR Negative Negative NG BY PCR Negative Negative Reviewed by MICKI Impression /Plan: 41+ week intrauterine in labor. Preparations in progress for delivery.
--- NOTE | 2020-02-28 06:57 | PCM.OPRPT ---
Vaginal Delivery Maternal Presentation: Active Labor Amniotic Membrane Rupture Type: Spontaneous Amniotic Fluid Description: Clear Final KARRI: 02/20/20 Final KARRI Source: US <20 weeks Gestational age: 41 Weeks and 1 Days Date of Procedure: 02/28/20 Pre-Operative Diagnosis: IUP Post-Operative Diagnosis: IUP Surgery/ Procedure Performed: Spontaneous Vaginal Delivery Type of Anesthesia: Local with 1% lidocaine Description of Procedure: Spontaneous vaginal delivery of a viable male infant with Apgars of 8/9 from an occiput anterior presentation with clear amniotic fluid and normal three-vessel placenta. Cord around the neck x1 tight. No episiotomy. Second-degree midline laceration repaired with 3-0 repeat suture under local. Kiwi vacuum used x1 gentle pull from low outlet to expedite delivery of the head due to deep decelerations with contractions. Sponges okay. Delivery physician: Thor Goins MD. Presentation: Vertex Placental Delivery Description: Spontaneous Placenta Disposition: [facility] Cord Vessel Description: 3 Vessels Cord Entanglement: Around neck x 1, tight
--- NOTE | 2020-02-28 07:03 | PCM.OPRPT ---
Vaginal Delivery Maternal Presentation: Active Labor Amniotic Membrane Rupture Type: Spontaneous at home Amniotic Fluid Description: Clear Final KARRI: 02/20/20 Final KARRI Source: US <20 weeks Gestational age: 41 Weeks and 1 Days Date of Procedure: 02/28/20 Pre-Operative Diagnosis: IUP Post-Operative Diagnosis: IUP Surgery/ Procedure Performed: Vacuum Assisted Vaginal Delivery Type of Anesthesia: Local with 1% lidocaine Description of Procedure: Spontaneous vaginal delivery of a viable male with Apgars of 8/9 from an occiput anterior presentation with clear amniotic fluid and normal three-vessel placenta. Cord around the neck x1 tight. No episiotomy. Second-degree midline laceration repaired with 3-0 rapide suture under local. Kiwi vacuum used x1 gentle pull from low outlet to expedite delivery of the head due to deep decelerations with contractions. Sponges okay. Delivery physician: Thor Goins MD. Presentation: Vertex Placental Delivery Description: Spontaneous Placenta Disposition: [facility] Cord Vessel Description: 3 Vessels Cord Entanglement: Around neck x 1, tight Estimated Blood Loss: 250 cc A gender: Male (1 minute): 8 (5 minute): 9 Episiotomy Description: None Laceration: Midline, 2nd degree Medications given after delivery: IM [place] Complications: None - Precipitous delivery
[2020-02-28] MEDS: Acetaminophen 500 MG Tablet 1000 MG PO ×2 (07:28→16:08)
[2020-02-28] MEDS: Ibuprofen 600 MG Tablet PO ×2 (08:47→17:39)
[2020-02-28] MEDS: Senna/Docusate Sodium 1 Tablet PO (19:52)
[2020-02-29 01:37] VITALS: BP 90/67; PULSE 78; RESP 16; TEMP 36.6
--- NOTE | 2020-02-29 08:26 | DCINST_ITS ---
Discharge Diet: No Restrictions Discharge Activity: Return to Normal Activity, May not drive while taking narcotic pain medications., May Shower May resume sexual activity in: 4-6 weeks Additional Activity Instructions:: Nothing in the vagina for 4-6 weeks. You may return to work/school in 6 weeks. Call your doctor if your incision/area has: Continuous Slow Oozing, Sudden Increased Bleeding, Increased Pain/ Swelling, Increased Redness, Foul Smelling Discharge Additional Instructions: If you experience any of the following, contact your healthcare provider. * Bleeding that soaks a pad every hour for 2 hours * Fever 100.4 or higher * Unrelieved incision or abdominal pain * Swelling, redness, discharge or bleeding from your incision or episiotomy site * Your incision begins to separate * Problems urinating (including inability to urinate or burning while urinating). * Visual changes * Severe headache * Flu-like symptoms * Pain or redness in one of both of your breasts * Pain, warmth, tenderness or swelling in your legs, especially the calf area * Frequent nausea and vomiting * Symptoms of depression or anxiety If you experience any of the following, call 911 or go to the nearest Emergency Room. * Chest pain * Problems breathing * Seizure activity * Partial or complete paralysis of a body part, slurred speech, weakness or drooping of the face, or a sudden inability to walk or hold your balance Allergies/Adverse Reactions: Allergies No Known Allergies Allergy (Verified 02/28/20 07:52) Medications to take at Discharge Vits [Prenatabs FA] 1 tablet PO DAILY 05/03/17 Please Follow Up With: Tiny Hua CNM When: Call to make an appointment with your CNM for a 2 week telehealth visit and a 6 week routine visit. Primary Care Physician: Care Physician,No Primary [Primary Care Provider] - Test Results: Test results from this visit will be discussed in further detail at your follow- up appointment, if applicable.
--- NOTE | 2020-02-29 08:27 | PCM.PN.OB ---
Subjective: Feeling well today. Mild cramping with . Bottom is sore, but tolerable. is going well. Denies heavy bleeding. She would like to discharge this AM. Objective: VSS. Fundus is firm, midline, u/1. Lochia rubra moderate. - Physical Exam Vitals/I&O's: Vital Signs Temp Pulse Resp BP Pulse Ox 97.8 F 78 16 90/67 92 02/29/20 01:37 02/29/20 01:37 02/29/20 01:37 02/29/20 01:37 02/28/20 07:25 Oxygen Delivery Method Room Air Weight: 69.6 kg Body Mass Index (BMI) 28.0 Intake and Output for Last 24 Hours 02/27/20 02/28/20 02/29/20 23:59 23:59 23:59 Intake Total 1000 / 1000 Balance 1000 / 1000 General: Alert, Oriented x3, Cooperative HEENT: Atraumatic, PERRLA, EOMI, Normocephalic Neck: Supple, No JVD, Negative Carotid Bruits Lungs: Clear to auscultation, Normal air movement Cardiovascular: Regular rate, No murmurs Abdomen: Bowel Sounds Present, Soft, Non Tender Extremities: No edema, Capillary Refill Less than 3 Seconds Skin: No rashes, No breakdown Musculoskeletal: No Tenderness to Palpation of Joints or Extremities Neurological: Cranial nerves II-XII grossly intact Psych/Mental Status: Normal Affect, Appropriate Current Medications Acetaminophen (Tylenol) 1,000 mg PO Q8H PRN PRN PRN Reason: Pain Score 1-3/10 Last Admin: 02/28/20 16:08 Dose: 1,000 mg Documented by: Bisacodyl (Dulcolax) 10 mg RECTAL UD PRN PRN Reason: If no BM Dibucaine (Dibucaine) 1 applic TOPICAL TID PRN PRN; Protocol PRN Reason: Discomfort Hydrocortisone (Hytone) 1 applic TOPICAL TID PRN PRN; Protocol PRN Reason: Discomfort Ibuprofen (Motrin) 600 mg PO Q6H PRN PRN PRN Reason: Pain Score 1-3/10 Last Admin: 02/28/20 17:39 Dose: 600 mg Documented by: Methylergonovine Maleate (Methergine) 0.2 mg IM X1 PRN PRN Reason: Excess bleeding/uterine atony Ondansetron HCl (Zofran) 4 mg IV Q4H PRN PRN PRN Reason: Nausea Oxycodone HCl (Oxyir) 5 - 10 mg PO Q4H PRN PRN PRN Reason: Pain Score 4-10/10 Oxytocin (Pitocin) 10 units IM X1 ADELAIDE Last Admin: 02/28/20 06:39 Dose: 10 units Documented by: Senna/Docusate Sodium (Senokot-S, Marisabel-Colace) 1 - 2 tablet PO DAILY PRN PRN PRN Reason: Constipation Last Admin: 02/28/20 19:52 Dose: 2 tablet Documented by: Simethicone (Mylicon) 80 mg PO PCHS PRN PRN Reason: Indigestion/Stomach pain Sodium Chloride () 5 - 15 ml IV UD PRN PRN Reason: SALINE FLUSH Zolpidem Tartrate (Ambien (Generic)) 5 mg PO QHS PRN PRN PRN Reason: Insomnia Medical Necessity - Tobacco Use Smoking Status: Never smoker Assessment/Plan A/P: S/P vacuum assisted vaginal delivery day #1 Normal involution and course well Dyad stable To discharge home today with a 2 week telehealth appt and a 6 week routine PP visit
[2020-02-29 08:42] VITALS: BP 107/74; PULSE 78; RESP 16; TEMP 36.7; O2SAT 98
[2020-02-29] MEDS: Ibuprofen 600 MG Tablet PO (08:53)
[2020-02-29 12:45] VITALS: BP 104/62; PULSE 76; RESP 16; TEMP 36.6
--- NOTE | 2020-02-29 13:01 | NURSING ---
patient refuses wheelchair for discharge. This RN ambulated with patient to front door of hospital with patient. KAYLEY held in carseat and this RN pushed cart.
== END 2020-02-29 12:50 | disposition home or self-care (01) | DRG 807 ==
LOC: WPOUT 05:11 → WP 05:11 → WPOUT 05:23 → WP 05:23
PROVIDERS: Obstetrics & Gynecology; Admitting Provider Obstetrics & Gynecology; Referring Provider Obstetrics & Gynecology; Visit Provider Obstetrics & Gynecology
DX: O76 Abnormality in fetal heart rate and rhythm complicating labor and delivery (principal); Z37.0 Single live birth; O42.92 Full-term premature rupture of membranes, unspecified as to length of time between rupture and onset of labor; O48.0 Post-term pregnancy; O69.1XX0 Labor and delivery complicated by cord around neck, with compression, not applicable or unspecified; O70.1 Second degree perineal laceration during delivery; O62.3 Precipitate labor; Z3A.41 41 weeks gestation of pregnancy
CPT/HCPCS: 59025; 59050; 85025; 86850; 86900; 86901; 99218; J7120; G0378

== ENCOUNTER → 2021-06-16 16:29 | Outpatient (CLI) | payer OTHER, SELFPAY ==
[2021-06-25 13:26] LABS: HPV APTIMA, High Risk Negative (Negative)
[2021-06-25 13:33] LABS: HPV Reflexed? YES, CHARGE PATIENT
== END ==
PROVIDERS: Visit Provider Student in an Organized Health Care Education/Training Program
DX: Z12.4 Encounter for screening for malignant neoplasm of cervix (principal)
CPT/HCPCS: 87624; 88175; G0145

== ENCOUNTER → 2021-07-28 14:32 | Outpatient (CLI) | payer OTHER, SELFPAY ==
[2021-07-28 16:12] LABS: Absolute Neutrophil Count 6.9 X10^3/uL (2.0-7.7); Basophil# 0.03 X10^3/uL; Basophil% 0.3 % (0-1); Eosinophil# 0.04 X10^3/uL; Eosinophils% 0.4 % (0-5); Hematocrit 38.1 % (37-47); Hemoglobin 12.6 g/dL (12.0-15.0); Lymphocyte % 20.3 % (19-41); Mean Corp Hgb Conc 33.1 g/dL (32-36); Mean Corpuscular Hgb 30.7 pg (27.0-32.0); Mean Corpuscular Volume 92.7 fL (81-99); Monocyte# 0.42 X10^3/uL; Monocyte% 4.5 % (0-10); NRBC Flagged by Analyzer 0 % (0-5); Neutrophil # 6.87 X10^3/uL (2.7-7.7); Neutrophil % 73.4 % (47-70); Platelet Count 214 K/mm3 (150-450); RBC Distribution Width CV 12.8 % (11.6-14.6); RBC Distribution Width SD 42.6 fl (35.1-43.9); Red Blood Count 4.11 M/mm3 (4.2-5.4); White Blood Count 9.4 K/mm3 (4.4-11.0)
[2021-07-29 09:12] LABS: HIV - WCH Non-Reactive (Nonreactive); Hepatitis B Surface Antigen Non-Reactive (Nonreactive); Hepatitis C Antibody Non-Reactive (Nonreactive); Rubella IgG Reactive (Nonreactive); Syphilis Antibodies Non-reactive
== END ==
PROVIDERS: Visit Provider Student in an Organized Health Care Education/Training Program
DX: Z34.81 Encounter for supervision of other normal pregnancy, first trimester (principal)
CPT/HCPCS: 36415; 85025; 86703; 86762; 86780; 86803; 87077; 87086; 87088; 87186; 87340

== ENCOUNTER 2021-08-26 16:53 | Outpatient (CLI) | payer OTHER, SELFPAY ==
[2021-08-26 17:25] LABS: Hemoglobin 12.2 g/dL (12.0-15.0); Mean Corpuscular Hgb 31.1 pg (27.0-32.0); Mean Corpuscular Volume 94.4 fL (81-99); Mean Platelet Vol. 9.7 fl (6.2-12.0); Platelet Count 206 K/mm3 (150-450); RBC Distribution Width CV 12.5 % (11.6-14.6); RBC Distribution Width SD 42.9 fl (35.1-43.9); Red Blood Count 3.92 M/mm3 (4.2-5.4); White Blood Count 8.9 K/mm3 (4.4-11.0)
[2021-08-26 18:32] LABS: Glucose Challenge Gest 1H 50g 102 mg/dL (70-140)
== END 2021-08-26 23:59 | disposition short-term general hospital (02) ==
LOC: WOBLAB 16:53
PROVIDERS: Visit Provider Student in an Organized Health Care Education/Training Program
DX: Z34.82 Encounter for supervision of other normal pregnancy, second trimester (principal)
CPT/HCPCS: 36415; 82950; 85027

== ENCOUNTER 2021-12-14 07:40 | Inpatient (IN) | payer OTHER, SELFPAY ==
[2021-12-14] VITALS (17 sets, daily range): BP systolic 97–129; BP diastolic 54–87; PULSE 93–127; RESP 16–18; TEMP 36.4–37; O2SAT 99–100; BMI 27.1
[2021-12-14] MEDS: Oxytocin 10 UNITS/ML Vial IM (08:00)
--- NOTE | 2021-12-14 08:31 | EX.PCM.OBRPT ---
Assessment & Plan (1) 40 weeks gestation of : (2) (spontaneous vaginal delivery): Maternal Data Information KARRI Calculator Estimated Delivery Date Method Current WG Current Estimate 12/14/21 Ultrasound #1 40w 0d Other Estimates 12/03/21 LMP (Certain) 41w 4d Vaginal Delivery Maternal Presentation Maternal Presentation: Active Labor Operative Information Date of Procedure: 12/14/21 Pre-Operative Diagnosis: 1. 40 weeks gestation 2. Labor Post-Operative Diagnosis: 1. 40 weeks gestation 2. Labor Surgery / Procedure Performed: Spontaneous Vaginal Delivery Type of Anesthesia: None Estimated Blood Loss: 300 ml Time of Delivery: 07:56 Findings Description of Procedure: Patient was FD/+3 station on my arrival. She pushed to deliver a vigorous female in OA through a nuchal cord. The cord was doubly clamped and cut. The infant was placed on the maternal abdomen and further attended by nursery personnel. The placenta delivered spontaneously and appeared intact on inspection. Cord blood was obtained. A second degree perineal laceration was repaired with 3-0 Vicryl Rapide with good hemostasis. Sponge and needle counts were correct x 2. Presentation: Vertex Amniotic Membrane Rupture Type: Spontaneous Time of Membrane Rupture: 0750 Amniotic Fluid Description: Clear Placental Delivery Description: Spontaneous Placenta Disposition: [facility] Cord Vessel Description: 3 Vessels Cord Entanglement: Around neck x 1, loose Infant A Gender: Female (1 minute): 9 (5 minute): 9 Delayed Cord Clamping: Yes Post Vaginal Delivery Medications Given After Delivery: - (Im pitocin) Episiotomy Description: None Laceration: Midline and 2nd degree Complication Complications: None
--- NOTE | 2021-12-14 08:54 | PCM.HP.OB ---
HPI - General General Date of Admission: 12/14/21 HPI Narrative CLEM GOMEZ, is a 26 F 53 now [id number] who presented in active labor, was FD on admission and delivered precipitously from her arrival. Issues: -Declined GC/CT -GBS bactiuria Maternal Data Information KARRI Calculator Estimated Delivery Date Method Current WG Current Estimate 12/14/21 Ultrasound #1 40w 0d Other Estimates 12/03/21 LMP (Certain) 41w 4d PFSH PFSH Medical History (Updated 12/14/21 @ 08:[address] Radha Hansen MD) Menstrual headache Home Medications vit,[id number] [Prenatabs FA] 1 tab PO DAILY 05/03/17 [History Last Taken 02/27/20] Allergy/AdvReac Type Severity Reaction Status Date / Time No Known Allergies Allergy Verified 12/14/21 08:40 Family History (Updated 12/14/21 @ 08:[address] Radha Hansen MD) Father Colon cancer Mother Hypertension Social History Smoking Status: Never smoker History 5 Elective abortions Hx Para 3 Spontaneous abortions 2 Hx # Term Pregnancies 3 Ectopic pregnancies Hx # Pregnancies 0 Multiple births # of living children 3 Past Pregnancies Del. Date Name GA/Weeks Outcome Route Bth Weight Infant Gen Labor Lgth Anesthesia Del Locatn Provider FOB 06/06/18 Leora 38 live - full term vacuum [id number] Female 36 epidural [place] Briseida Demian 02/28/20 Brendan 41 live - full term vacuum [id number] Male 2 none [facility] Briseida Arciniega 12/14/21 Rose Mary 40 live - full term Female 5 none [facility] Roxi Arciniega Delivery Date: 06/06/18 3.5h pushing, maternal fatigue Radha Arita Delivery Date: 02/28/20 deep variable decelerations Juan JSummer Delivery Date: 12/14/21 No notes to display Vital Signs Vital Signs Vital Signs: 12/14/21 07:42 12/14/21 07:47 12/14/21 08:34 Pulse Rate 123 H 112 H 104 H Blood Pressure 129/87 H 117/54 L BP Systolic 129 117 BP Diastolic 87 54 Pulse Ox 99 100 12/14/21 08:43 Pulse Rate 96 Blood Pressure 108/57 L BP Systolic 108 BP Diastolic 57 Pulse Ox Weight Weight: 67.132 kg Body Mass Index (BMI) 27.1 Physical Exam Const alert, oriented x3 and no apparent distress HEENT normocephalic Resp normal respiratory effort, normal air movement and clear to auscultation bilaterally Cardio regular rate and regular rhythm GI normal to inspection, nondistended, normoactive bowel sounds, soft to palpation, non-tender and non-distended Extremity no calf tenderness and no pedal edema Labs Labs Labs: Blood Type O POSITIVE Antibody Screen NEGATIVE Hct 37.0 % (37-47) Hgb 12.2 g/dL (12.0-15.0) Obstetrics US Syphilis Total Ab Non-reactive Rubella IgG Antibody Reactive (Nonreactive) Hep Bs Antigen Non-Reactive (Nonreactive) HIV 1&2 Antibody Non-Reactive (Nonreactive) Glucose 1 Hr 50 gm 102 mg/dL (70-140) Group B Strep DNA POSITIVE (Negative) H Rhogam given: No Assessment & Plan (1) (spontaneous vaginal delivery): PLAN: Routine care O positive Rubella immune HBsAg, HIV neg GBS positive - not treated Admission labs pending (2) 40 weeks gestation of :
[2021-12-14] MEDS: Acetaminophen 500 MG Tablet 1000 MG PO ×2 (09:31→16:52)
[2021-12-14] MEDS: Benzocaine/Lanolin/Aloe Vera 1 SPRAY EACH TOPICAL (09:33)
[2021-12-14 10:37] LABS: Absolute Lymphocyte Count 0.87 X10^3/uL (0.83-4.51); Absolute Neutrophil Count 14.7 X10^3/uL (2.0-7.7); Basophil# 0.04 X10^3/uL; Basophil% 0.2 % (0-1); Hematocrit 37.1 % (37-47); Hemoglobin 12.3 g/dL (12.0-15.0); Lymphocyte # 0.87 X10^3/ul (0.83-4.51); Lymphocyte % 5.3 % (19-41); Mean Corp Hgb Conc 33.2 g/dL (32-36); Mean Corpuscular Hgb 30.8 pg (27.0-32.0); Mean Platelet Vol. 9.8 fl (6.2-12.0); Monocyte# 0.49 X10^3/uL; NRBC Flagged by Analyzer 0 % (0-5); Neutrophil # 14.69 X10^3/uL (2.7-7.7); Neutrophil % 89.4 % (47-70); Platelet Count 212 K/mm3 (150-450); RBC Distribution Width CV 12.7 % (11.6-14.6); RBC Distribution Width SD 42.5 fl (35.1-43.9); Red Blood Count 3.99 M/mm3 (4.2-5.4); White Blood Count 16.4 K/mm3 (4.4-11.0)
[2021-12-14] MEDS: Ibuprofen 600 MG Tablet PO ×2 (11:57→18:57)
[2021-12-14] MEDS: Senna/Docusate Sodium 1 Tablet PO (20:10)
[2021-12-15] VITALS (8 sets, daily range): BP systolic 102–116; BP diastolic 57–73; PULSE 83–114; RESP 16; TEMP 36.1–36.9
[2021-12-15] MEDS: Acetaminophen 500 MG Tablet 1000 MG PO ×3 (02:18→16:06)
[2021-12-15] MEDS: Ibuprofen 600 MG Tablet PO ×3 (06:05→19:19)
--- NOTE | 2021-12-15 08:34 | PN.OBGYN_ITS ---
Subjective Subjective day 1. Feeling well. Lochia minimal. Breast-feeding going well. Baby is cluster feeding at this time. Objective Data Objective Data Vital Signs: Vital Signs Temp Pulse Resp BP Pulse Ox 97.7 F L 83 16 102/61 100 12/15/21 04:40 12/15/21 04:40 12/15/21 04:40 12/15/21 04:40 12/14/21 07:47 Oxygen Delivery Method Room Air Weight: 67.132 kg Body Mass Index (BMI) 27.1 Intake & Output: Intake and Output for Last 24 Hours 12/13/21 12/14/21 12/15/21 23:59 23:59 23:59 Output Total 900 / 900 Balance -900 / -900 Lab / Micro Data Result Diagrams: 12/14/21 10:20 Labs: Laboratory Results - last 24 hr 12/14/21 10:20: WBC 16.4 H, RBC 3.99 L, Hgb 12.3, Hct 37.1, MCV 93.0, MCH 30.8, MCHC 33.2, RDW Std Deviation 42.5, RDW Coeff of [place] 12.7, Plt Count 212, MPV 9.8, Immature Gran % (Auto) 2.100 H, Neut % (Auto) 89.4 H, Lymph % (Auto) 5.3 L, [place] % (Auto) 3.0, Eos % (Auto) 0.0, Baso % (Auto) 0.2, Absolute Neuts (auto) 14.7 H, Absolute Lymphs (auto) 0.87, Nucleated RBC % 0 12/14/21 10:20: Blood Type O POSITIVE, Antibody Screen NEGATIVE Physical Exam Const alert, oriented x3 and no apparent distress HEENT normocephalic Head and Scalp: atraumatic Neck full ROM Resp normal respiratory effort Cardio regular rate GI normal to inspection, nondistended, normoactive bowel sounds GI Narrative: Uterus 2 cm below umbilicus Back/Spine normal ROM Extremity normal to inspection Extremity Narrative: Minimal pedal edema Neuro no focal motor deficits and no sensory deficits noted Psych mental status grossly normal and affect normal Assessment & Plan (1) (spontaneous vaginal delivery): PLAN: day 1 status post . Breast-feeding. GBS positive with precipitous delivery, did not get penicillin. Observation of baby postdelivery per haunted history tour guide. Desires home-going today. Will discharge this evening once baby is okay for discharge as well.
--- NOTE | 2021-12-15 08:36 | PCM.DC ---
Discharge Instructions Diet Discharge Diet: No restrictions Activity Discharge Activity: Return to Normal Activity and May Shower May resume sexual activity in: 4-6 weeks Weight Bearing Status: Weight bearing as tolerated Lifting Restrictions: No greater than 25 pounds Dressing / Incision Call your doctor if you observe: Fever of 101 or Higher, Change in Color, Inability to urinate, Using more than 1 pad per hour, Shortness of breath, Dizziness, Swelling in the ankles, Chest pain and Calf discomfort Follow Up Care Please Follow Up With: Blanca Munoz DO When: 2-week telehealth appointment and 6-week visit Test Results: Test results from this visit will be discussed in further detail at your follow-up appointment, if applicable. Discharge Plan Admission Admit Date/Time: 12/14/21 07:40 Primary Reason for Your Visit: Vaginal Delivery Attending Provider: Radha Grimes Primary Care Provider: Care Physician,Laura Primary Discharge Orders/Prescriptions Prescriptions: No Action Prenatabs FA 1 TABLET tablet 1 tab PO DAILY RF: 0 Referrals / Follow Up: Care Physician,No Primary [Primary Care Provider] - Disposition Disposition (needs filled in before D/C Order can be placed): Home, Self Care
== END 2021-12-15 20:08 | disposition home or self-care (01) | DRG 807 ==
LOC: WPOUT 07:52 → WP 07:52
PROVIDERS: Admitting Provider Obstetrics & Gynecology; Visit Provider Obstetrics & Gynecology
DX: O62.3 Precipitate labor (principal); Z37.0 Single live birth; O48.0 Post-term pregnancy; O99.824 Streptococcus B carrier state complicating childbirth; O69.81X0 Labor and delivery complicated by cord around neck, without compression, not applicable or unspecified; O70.1 Second degree perineal laceration during delivery; Z3A.40 40 weeks gestation of pregnancy
CPT/HCPCS: 59050; 76815; 85025; 86850; 86900; 86901; 99218; G0378